=== PATIENT | female | born 1960 | race American Indian/Alaskan Native ===

== ENCOUNTER 2017-08-09 09:01 | Day surgery (SDC) | payer OTHER ==
[2017-05-25 13:34] VITALS: BMI 44.6
[2017-08-09] MEDS ORDERED: Midazolam 2 MG/2 ML VIAL ONE (13:33)
[2017-08-09] MEDS ORDERED: Propofol 10 mg/ml Inj (20 ML) ONE (13:33)
[2017-08-09] MEDS ORDERED: Lidocaine Hydrochloride 5 ML INJ ONE (13:35)
[2017-08-09] MEDS ORDERED: Lactated Ringer's 1,000 ML IV ONE (14:38)
[2017-08-09] MEDS: HYDROmorphone 0.5 mg/0.5 ml ISec IVP PRN ×2 (14:50→15:26)
[2017-08-09 16:40] VITALS: BP 110/55; PULSE 92; RESP 19; TEMP 98; O2SAT 95
--- NOTE | 2017-08-09 17:03 | PCM.SURG1 ---
Surgeon's Initial Post Op Note - Surgeon's Notes Surgeon: Oksana Jaffe MD Environmental Health Safety Manager: none Type of Anesthesia: General LMA Pre-Operative Diagnosis: Abnormal uterine bleeding Operative Findings: enlarged uteurs, cervical stenosis, multpoel polypoid lesiosn within cavity and submucosal myoma 0.5cm, bilateral ostia visulaized Post-Operative Diagnosis: same as above, submucosal myoma, endometiral polyp Operation Performed: Hysteroscopic myomectomy, endometrial polypectomy, Dilation and currettage Specimen/Specimens Removed: endocervical currettings, enodmetrial currettins, submucosal myoma, endometrial polyp Estimated Blood Loss: EBL {In ML}: 25 Blood Products Given: N/A Drains Used: No Drains Post-Op Condition: Good Date of Surgery/Procedure: 08/09/17 Time of Surgery/Procedure: 13:00
--- NOTE | 2017-08-10 02:07 | OP ---
PROCEDURE DATE: 08/09/2017 SURGEON: Oksana Jaffe MD BRIDGE REPAIR CREW PERSON: None. TYPE OF ANESTHESIA: General LMA. PREOPERATIVE DIAGNOSIS: Abnormal uterine bleeding. OPERATIVE FINDINGS: Enlarged uterus, cervical stenosis, multiple polypoid lesions within cavity, submucosal myoma of 0.5 cm, bilateral ostia visualized. POSTOPERATIVE DIAGNOSES: Abnormal uterine bleeding, submucosal myoma and endometrial polyps. OPERATION PERFORMED: Hysteroscopy, myomectomy, endometrial polypectomy, dilation and curettage. SPECIMEN REMOVED: Endocervical curettings, endometrial curettings, submucosal myoma, and endometrial polyp. ESTIMATED BLOOD LOSS: 25 mL. BLOOD PRODUCTS: None. COMPLICATIONS: None. DESCRIPTION OF PROCEDURE: The patient was taken to the operating room where she was given general anesthesia. Once it was found to be adequate, she was positioned on the operating table in a dorsal supine position with the legs supported using stirrups. The patient was then prepped and draped in the usual sterile fashion. A time-out was confirmed correct patient and correct procedure. Bimanual examination was performed with the above-mentioned findings. A red rubber catheter was then inserted into the urethra to drain the bladder. Following this, a Balderas retractor was placed on the anterior and posterior fornix of the vagina. The cervix was adequately visualized and a single-tooth tenaculum was placed in the anterior lip of the cervix. Endocervical curettings were obtained with a Nareshian curette and sent to Pathology on [facility]. Cervical stenosis noted. The uterus was then sounded to 8 cm. Following this, the cervix was sequentially dilated to allow for introduction of a 5 mm hysteroscope under direct visualization using normal saline as the distention media. There were multiple polypoid masses noted within the endometrial cavity and one submucosal lesion noted 0.5 cm in close proximity to the right tubal ostia. Bilateral ostia were visualized. MyoSure device was then inserted under direct visualization and the masses were then carefully resected all of them. Following this, the MyoSure device was removed. A gentle curettage was done 360 degrees until gritty texture was noted. All instruments were removed with good hemostasis noted at the tenaculum puncture site. At the end of the procedure, all needle, sponge and instrument counts were noted and correct x2. The patient tolerated the procedure well and was transferred to the recovery room in stable condition. Oksana Jaffe MD [facility] # [id number]
== END 2017-08-09 16:54 | disposition home or self-care (01) ==
LOC: C.SDS 09:01
PROVIDERS: ATTEND Obstetrics & Gynecology
DX: N84.0 Polyp of corpus uteri (principal); N88.2 Stricture and stenosis of cervix uteri; R10.2 Pelvic and perineal pain; D25.9 Leiomyoma of uterus, unspecified; N87.0 Mild cervical dysplasia; N93.9 Abnormal uterine and vaginal bleeding, unspecified; K21.9 Gastro-esophageal reflux disease without esophagitis; E11.9 Type 2 diabetes mellitus without complications; Z79.84 Long term (current) use of oral hypoglycemic drugs; I10 Essential (primary) hypertension; E78.5 Hyperlipidemia, unspecified
CPT/HCPCS: 58561; 82948; 88305; J1170; J2250; J2704; J3010; J7120

== ENCOUNTER 2017-10-21 11:30 | Inpatient (IN) | payer OTHER ==
[2017-10-18 09:20] VITALS: BMI 44.9
[2017-10-24] MEDS ORDERED: Propofol 10 mg/ml Inj (20 ML) ONE ×2 (10:38→13:19)
[2017-10-24] MEDS ORDERED: ceFAZolin 1 gm in NS 2 GM/200 ML BAG IVPB ONE (10:39)
[2017-10-24] MEDS ORDERED: Midazolam 2 MG/2 ML VIAL ONE (10:42)
[2017-10-24] MEDS ORDERED: ceFAZolin 1 gm in NS 1 GM/100 ML BAG IVPB ONE (10:57)
[2017-10-24] MEDS ORDERED: Rocuronium 10 mg/ml (5 ml) ONE (11:14)
[2017-10-24] MEDS ORDERED: Succinylcholine Chloride 20 mg/ml Syr (5 ml) IV ONE (11:14)
[2017-10-24] MEDS ORDERED: HYDROmorphone 0.5 mg/0.5 ml ISec IVP PRN (12:52)
[2017-10-24] MEDS ORDERED: Morphine Monoject Barrel PCA 1mg/ml IV PRN (12:53)
[2017-10-24] MEDS ORDERED: Morphine 4 MG/ML VIAL ONE (13:35)
[2017-10-24] MEDS ORDERED: Methylene Blue 10 mg/mL(10ml) IV ONE (13:43)
[2017-10-24] MEDS ORDERED: Lactated Ringer's 1,000 ML IV SCH (15:15)
[2017-10-24] MEDS: HYDROmorphone 0.5 mg/0.5 ml ISec IVP PRN ×2 (15:15→17:12)
--- NOTE | 2017-10-24 17:43 | PCM.SURG1 ---
Surgeon's Initial Post Op Note - Surgeon's Notes Surgeon: Oksana Jaffe MD Molding Line Operator: Buster Muir MD Type of Anesthesia: General Endo Pre-Operative Diagnosis: Postmenopausal bleeding, Sympoamtic fibroid uterus, pelvic pain Operative Findings: 12-14 week size heart s haped uteurs with subucosala myoma, no gross fallopian tubes or ovaires identifed, dense adehsiosn to anterior abodmina was 1 hour lysisting omental adhesiosn to gain accesss to periteonal cavity adn bladder adhesios to lower uterine segmetn and other adhesion. Cystoscopy bilateral uretral jets visulzed. Dr Buster Muir was surgcal assisatn and present for etnire case and essential in gaining entry , retraction , lysing adhesions, performing hysterectomy , obtaning hemostasis, and was pressent for entire case Post-Operative Diagnosis: same as above Operation Performed: Exploratory Laparatomy, Total abdominal hysterectomy, Lysis of adhesions, Cystoscopy Specimen/Specimens Removed: Uterus, cervix Estimated Blood Loss: EBL {In ML}: 400 Blood Products Given: N/A Drains Used: No Drains Date of Surgery/Procedure: 10/24/17 Time of Surgery/Procedure: 11:00
[2017-10-24] MEDS ORDERED: Albuterol 0.083% Inhal Sol (2.5 mg/3 mL) UD INH PRN (18:34)
--- NOTE | 2017-10-25 05:29 | OP ---
PROCEDURE DATE: 10/24/2017 SURGEON: Oksana Jaffe MD CAMPUS INTERVIEWS INTERN: Dr. Wilmer Muir. TYPE OF ANESTHESIA: General endotracheal. PREOPERATIVE DIAGNOSES: Postmenopausal bleeding, symptomatic fibroid uterus, pelvic pain. POSTOPERATIVE DIAGNOSES: Postmenopausal bleeding, symptomatic fibroid uterus, pelvic pain. OPERATIVE FINDINGS: A 12-to 14-week size heart shaped uterus, submucosal myoma. No gross fallopian tubes, ovaries identified. Dense adhesions in the anterior abdominal wall of omentum, lysing adhesions 1 hour and also to gain access to the peritoneal cavity. Bladder adhesions noted to the lower uterine segment, and other adhesions, cystoscopy, bilateral ureteral jets. Dr. Wilmer Muir, the surgical services tech was present for the entire case, essential in gaining entry, retraction, exposure, lysing adhesions, performing hysterectomy, attaining hemostasis, present for the entire case. OPERATION PERFORMED: Exploratory laparotomy, total abdominal hysterectomy, lysis of adhesions, cystoscopy. SPECIMENS REMOVED: Uterus and cervix. ESTIMATED BLOOD LOSS: 4 mL. BLOOD PRODUCTS: None. COMPLICATIONS: None. DESCRIPTION OF PROCEDURE: The patient was then transferred to the operating room, where she was prepped and draped in usual sterile fashion. A time-out confirmed correct patient and correct procedure. The patient was given preoperative prophylactic antibiotics. Pfannenstiel skin incision was made into the abdomen down to the subcutaneous tissue, muscular fascia, and peritoneum with careful care. Hemostasis was obtained. Once inside the abdominal cavity, a self-retaining retractor was placed to expose the pelvic cavity with three lap sponges. The uterus was then identified and grasped on the fundus with a cork screw with upward traction, and this was after omental adhesions were carefully dissected from the anterior abdominal wall. Following this, after the uterus was then mobilized on upward traction, the round ligaments on either side were identified, and individually dissected and ligated with 0-Vicryl suture and divided. This allowed us to create a bladder flap by both blunt and sharp dissection after carefully removing bladder adhesions with Metzenbaum scissors in the clear space. The fallopian tube and ovarian ligament were not grossly identified on either side. However, there was a atrophic type right ovary noted, left ovary noted. The utero-ovarian ligament was isolated to the broad ligament from the uterine body and ligated with 0 Vicryl suture and divided as well. The uterine vessel was then skeletonized on either side and carefully dissected the bladder flap anteriorly and posteriorly. The peritoneum was dissected down towards the uterosacral ligament. The Nanci clamps were then placed at the isthmic portion of the cervical body junction where the uterine arteries have drained the uterus. They were clamped, ligated, and divided using 0 Vicryl suture. The remainder of the uterus was then removed by the clamp, cut, ligation technique using the 0 Vicryl on all major pedicles down to the cardinal ligament with removal of uterus and cervix. Vaginal cuff was then closed in the usual manner, 0 Vicryl in interrupted manner. Hemostasis was inspected and secured throughout the entire abdomen. The peritoneum was then closed over the vaginal cuff using a 2-0 Vicryl suture in a running continuous manner. The right ovary was left in situ, suspended to the side wall. The lap, sponge, and instruments were removed. Self-retaining retractor was removed. The patient tolerated the procedure nicely. There were no complications associated with the surgical procedure at this point. The sponge count was correct x2. The Jameson catheter was inspected and clear urine was noted. Having removed all instruments and packs, then began closure of abdomen. Peritoneum was reapproximated with 2-0 Vicryl in a running continuous fashion. The rectus was reapproximated and closed with 2-0 chromic in an interrupted manner. The fascia was closed with 0 Vicryl in running continuous fashion, subcutaneous closed with 2-0 Vicryl in a running continuous manner. The skin was closed with sophia. Hemostasis was secured throughout the entire procedure. The incision was then closed and noted in the above operative findings. The patient had tolerated the procedure well. Then the abdomen was cleaned and irrigated. Attention was then turned to the peritoneum. The Jameson catheter was removed. Following this, a Sinhala ____ cystoscope was then inserted. The urethra appeared normal. The bladder was distended with normal saline. There were no sutures on gross evaluation. There were bilateral ureteral jets with patency noted on either side. The cystoscope was then removed and a new Jameson catheter was inserted. At the end of procedure, all needle, sponge, and instrument counts were correct x2. The patient tolerated the procedure well and transferred to recovery room in stable condition. Oksana Jaffe MD
[2017-10-25] MEDS ORDERED: Oxycodone/Acetaminophen 5/325 mg Tab PO PRN (07:59)
--- NOTE | 2017-10-25 07:59 | CP.PCM.PN ---
<Yamel Oneal - Last Filed: 10/25/17 08:53> Subjective - Date & Time of Evaluation Date of Evaluation: 10/25/17 Time of Evaluation: 07:59 - Subjective Subjective: Patient was seen and examined at bedside in no acute distress. Patient reports that she currently has pain 10/10 at incision site. States that she was given Morphine with no relief in symptoms. States that she only tolerated tea, not willing to tolerate other liquids at this time. Patient also reports vomiting x 2 - yellow in color, s/p hysterectomy; however, currently denies nausea and vomiting. Patient denies flatus and bowel movents. Otherwise, denies fevers, chills, chest pain, SOB, palpitations, leg swelling/pain. Objective - Vital Signs/Intake and Output Vital Signs (last 24 hours): Temp Pulse Resp BP Pulse Ox 98.6 F 95 H 20 141/80 100 10/25/17 00:00 10/25/17 00:00 10/25/17 00:00 10/25/17 00:00 10/25/17 00:00 Intake and Output: 10/25/17 10/25/17 06:59 18:59 Intake Total 125 Balance 125 - Medications Medications: Current Medications Lactated Ringer's (Lactated Ringer's) 1,000 mls @ 125 mls/hr IV .Q8H CATALINA Cefazolin Sodium 3,000 mg/ (Sodium Chloride) 100 mls @ 100 mls/hr IVPB Q8H [place]INA PRN Reason: Protocol Last Admin: 10/25/17 03:29 Dose: 100 mls/hr Ibuprofen (Motrin Tab) 600 mg PO Q6H PRN PRN Reason: Pain, Mild (1-3) Insulin Human Regular (Novolin R) 0 unit SC ACHS CATALINA PRN Reason: Protocol Morphine Sulfate/Sodium Chloride (Morphine Director Of Philanthropy Monoject Barrel) 30 mg IV Q4H PRN; Protocol PRN Reason: Pain, moderate (4-7) Stop: 10/25/17 12:53 Ondansetron HCl (Zofran Inj) 4 mg IVP Q8H PRN PRN Reason: Nausea/Vomiting Last Admin: 10/24/17 21:22 Dose: 4 mg - Constitutional Appears: No Acute Distress - Head Exam Head Exam: ATRAUMATIC, NORMAL INSPECTION - Eye Exam Eye Exam: EOMI, Normal appearance - ENT Exam ENT Exam: Mucous Membranes Moist - Respiratory Exam Respiratory Exam: Clear to Ausculation Bilateral. absent: Rales, Rhonchi, Wheezes - Cardiovascular Exam Cardiovascular Exam: REGULAR RHYTHM, +S1, +S2 - GI/Abdominal Exam GI & Abdominal Exam: Distended (mild), Soft, Tenderness (surgical incision, diffuse mild tenderness LLQ with palpation), Normal Bowel Sounds Additional comments: dressing clean, dry intact; obese abdomen - Extremities Exam Extremities Exam: Normal Inspection - Neurological Exam Neurological Exam: Alert, Awake, Oriented x3 - Psychiatric Exam Psychiatric exam: Normal Affect, Normal Mood - Skin Skin Exam: Dry, Intact, Normal Color, Warm Assessment and Plan - Assessment and Plan (Free Text) Plan: Patient is a 57 year old female s/p total abdominal hysterectomy; POD#1. Plan/Assessment: - Pain management: Discontinued morphine HORSES OR MULES TEAMSTER Ibuprofen 600mg PO Q6h prn for mild pain Percocet 1 tab Q4 prn for moderate pain Percocet 2 tabs Q4 prn for severe pain - Continue IV Antibiotic: Cefazolin 3g IV Q8h - Continue LRs - Continue Zofran 4mg IV Q8 prn for nausea - Encourage ambulation. - Liquid diet, advance as tolerated. <Oksana Jaffe - Last Filed: 10/26/17 07:53> Objective - Vital Signs/Intake and Output Vital Signs (last 24 hours): Temp Pulse Resp BP Pulse Ox 99.0 F 98 H 20 127/78 100 10/26/17 04:00 10/26/17 04:00 10/26/17 04:00 10/26/17 04:00 10/26/17 04:00 - Medications Medications: Current Medications Lactated Ringer's (Lactated Ringer's) 1,000 mls @ 125 mls/hr IV .Q8H [place]INA Ibuprofen (Motrin Tab) 600 mg PO Q6H PRN PRN Reason: Pain, Mild (1-3) Insulin Human Regular (Novolin R) 0 unit SC ACHS [place]INA PRN Reason: Protocol Last Admin: 10/26/17 03:53 Dose: Not Given Ondansetron HCl (Zofran Inj) 4 mg IVP Q8H PRN PRN Reason: Nausea/Vomiting Last Admin: 10/24/17 21:22 Dose: 4 mg Oxycodone/Acetaminophen (Percocet 5/325 Mg Tab) 1 tab PO Q4H PRN PRN Reason: Pain, moderate (4-7) Stop: 10/28/17 08:00 Oxycodone/Acetaminophen (Percocet 5/325 Mg Tab) 2 tab PO Q4H PRN PRN Reason: Pain, severe (8-10) Stop: 10/28/17 08:01 Last Admin: 10/26/17 03:45 Dose: 2 tab Simethicone (Mylicon Chew Tab) 80 mg PO QID CATALINA Last Admin: 10/25/17 21:38 Dose: 80 mg - Labs Labs: 10/25/17 20:06 10/25/17 08:25 Assessment and Plan - Assessment and Plan (Free Text) Plan: agree with above pt camron and emaxiend encourage mabaiton out of bed, avance diet bowel regimen maryjo lightheand, dizzyness, cp, sob plna iron advance diet pain amgnetn encouarhe ambaiotn incentive spirometner
[2017-10-25 08:36] LABS: HEMOGLOBIN 7.9 g/dL (11.0-16.0); MEAN CELL VOLUME 92.2 fL (81.0-99.0); MEAN CORPUSCULAR HEMOGLOBIN 31.5 pg (27.0-31.0); MEAN CORPUSCULAR HGB CONC 34.1 g/dL (33.0-37.0); MEAN PLATELET VOLUME 9.9 fL (7.2-11.7); RBC 2.51 Mil/uL (3.80-5.20); RED CELL DISTRIBUTION WIDTH 15.6 % (11.5-14.5); WHITE BLOOD COUNT 8.1 K/uL (4.8-10.8)
[2017-10-25 08:54] LABS: ALBUMIN 3.4 g/dL (3.5-5.0); ALT/SGPT 55 U/L (9-52); AST/SGOT 53 U/L (14-36); BLOOD UREA NITROGEN 9 mg/dL (7-17); CALCIUM 8.1 mg/dl (8.6-10.4); GFR AFRICAN-AMERICAN > 60; GFR NON-AFRICAN AMERICAN > 60
[2017-10-25] MEDS: Oxycodone/Acetaminophen 5/325 mg Tab PO PRN ×3 (09:00→21:37)
[2017-10-25] MEDS: Simethicone 80 mg Chewtab PO SCH ×3 (14:39→21:38)
[2017-10-25 20:10] LABS: BASO % 0.5 % (0.0-2.0); EOS # 0.1 K/uL (0.0-0.7); EOS % 1.1 % (0.0-4.0); HEMOGLOBIN 7.6 g/dL (11.0-16.0); LYMPH # 1.9 K/uL (1.0-4.3); LYMPH % 25.8 % (20.0-40.0); MEAN CELL VOLUME 91.4 fL (81.0-99.0); MEAN CORPUSCULAR HEMOGLOBIN 30.9 pg (27.0-31.0); MEAN CORPUSCULAR HGB CONC 33.8 g/dL (33.0-37.0); MEAN PLATELET VOLUME 9.4 fL (7.2-11.7); MONO # 0.4 K/uL (0.0-0.8); MONO % 5.9 % (0.0-10.0); NEUT % 66.7 % (50.0-75.0); NRBC % 0.1 % (0.0-2.0); RBC 2.45 Mil/uL (3.80-5.20); RED CELL DISTRIBUTION WIDTH 15.4 % (11.5-14.5); WHITE BLOOD COUNT 7.5 K/uL (4.8-10.8)
[2017-10-26] MEDS: Oxycodone/Acetaminophen 5/325 mg Tab PO PRN ×3 (03:45→17:31)
[2017-10-26] MEDS: (Novolin R) Insulin Human Regular 100 units/ml vial SC SCH ×5 (03:53→22:07)
--- NOTE | 2017-10-26 07:57 | CP.PCM.PN ---
Subjective - Date & Time of Evaluation Date of Evaluation: 10/26/17 Time of Evaluation: 07:15 - Subjective Subjective: pt seen and examined and reprots pain comes adn goes. pt ambuaitng, voidign, not passing flatus, tolerateign diet, dneis any cp, sob, dizzynes, lightheand,d . Objective - Vital Signs/Intake and Output Vital Signs (last 24 hours): Temp Pulse Resp BP Pulse Ox 99.0 F 98 H 20 127/78 100 10/26/17 04:00 10/26/17 04:00 10/26/17 04:00 10/26/17 04:00 10/26/17 04:00 - Medications Medications: Current Medications Lactated Ringer's (Lactated Ringer's) 1,000 mls @ 125 mls/hr IV .Q8H [place] Ibuprofen (Motrin Tab) 600 mg PO Q6H PRN PRN Reason: Pain, Mild (1-3) Insulin Human Regular (Novolin R) 0 unit SC ACHS [place] PRN Reason: Protocol Last Admin: 10/26/17 03:53 Dose: Not Given Ondansetron HCl (Zofran Inj) 4 mg IVP Q8H PRN PRN Reason: Nausea/Vomiting Last Admin: 10/24/17 21:22 Dose: 4 mg Oxycodone/Acetaminophen (Percocet 5/325 Mg Tab) 1 tab PO Q4H PRN PRN Reason: Pain, moderate (4-7) Stop: 10/28/17 08:00 Oxycodone/Acetaminophen (Percocet 5/325 Mg Tab) 2 tab PO Q4H PRN PRN Reason: Pain, severe (8-10) Stop: 10/28/17 08:01 Last Admin: 10/26/17 03:45 Dose: 2 tab Simethicone (Mylicon Chew Tab) 80 mg PO QID [facility] Last Admin: 10/25/17 21:38 Dose: 80 mg - Labs Labs: 10/25/17 20:06 10/25/17 08:25 - Constitutional Appears: Well, Non-toxic - Head Exam Head Exam: ATRAUMATIC, NORMAL INSPECTION - ENT Exam ENT Exam: Mucous Membranes Moist - Neck Exam Neck Exam: Full ROM - Respiratory Exam Respiratory Exam: Clear to Ausculation Bilateral, NORMAL BREATHING PATTERN - Cardiovascular Exam Cardiovascular Exam: REGULAR RHYTHM, +S1, +S2 - GI/Abdominal Exam GI & Abdominal Exam: Soft, Tenderness, Normal Bowel Sounds Additional comments: TTP near incison, no guraidn, no reobudn tendnere, no irigity incison c/d/di - Extremities Exam Extremities Exam: Full ROM, Normal Inspection - Back Exam Back Exam: NORMAL INSPECTION - Neurological Exam Neurological Exam: CN II-XII Intact, Oriented x3 - Skin Skin Exam: Normal Color Assessment and Plan (1) S/P hysterectomy Assessment & Plan: 1. Pain mamangent: percocet/motirn 2. Advan e diet 3. Encouraghe ambatin 4. Incentive spironter 5. Astham: albuterol bprn 6. HTN: Meds, VS per rptocoe 7. DM: Insulin with blood gluow moing 8. Iron /colace with acute on chronic bloodloss anemia, curent stable Status: Acute
[2017-10-26] MEDS: Simethicone 80 mg Chewtab PO SCH ×4 (09:09→22:13)
[2017-10-26] MEDS ORDERED: Magnesium Hydroxide Susp 30 ml UD PO ONE (17:33)
[2017-10-26] MEDS: Pantoprazole 20 mg EC Tab PO SCH (22:46)
[2017-10-27 00:37] VITALS: PULSE 95
[2017-10-27] MEDS: Oxycodone/Acetaminophen 5/325 mg Tab PO PRN (02:20)
[2017-10-27 07:48] LABS: BASO % 0.5 % (0.0-2.0); EOS # 0.1 K/uL (0.0-0.7); EOS % 2.7 % (0.0-4.0); HEMOGLOBIN 7.6 g/dL (11.0-16.0); LYMPH # 1.5 K/uL (1.0-4.3); LYMPH % 26.8 % (20.0-40.0); MEAN CELL VOLUME 92.1 fL (81.0-99.0); MEAN CORPUSCULAR HEMOGLOBIN 31.4 pg (27.0-31.0); MEAN CORPUSCULAR HGB CONC 34.1 g/dL (33.0-37.0); MEAN PLATELET VOLUME 9.8 fL (7.2-11.7); MONO # 0.3 K/uL (0.0-0.8); MONO % 5.7 % (0.0-10.0); NEUT # 3.6 K/uL (1.8-7.0); NEUT % 64.3 % (50.0-75.0); NRBC % 0.1 % (0.0-2.0); RBC 2.41 Mil/uL (3.80-5.20); WHITE BLOOD COUNT 5.6 K/uL (4.8-10.8)
[2017-10-27 08:11] LABS: ALB/GLOB RATIO 1.1 (1.0-2.1); ALBUMIN 3.4 g/dL (3.5-5.0); ALT/SGPT 45 U/L (9-52); AST/SGOT 59 U/L (14-36); BLOOD UREA NITROGEN 6 mg/dL (7-17); CALCIUM 8.2 mg/dl (8.6-10.4); GFR AFRICAN-AMERICAN > 60; GFR NON-AFRICAN AMERICAN > 60
[2017-10-27] MEDS: (Novolin R) Insulin Human Regular 100 units/ml vial SC SCH ×2 (08:17→11:27)
[2017-10-27] MEDS: Simethicone 80 mg Chewtab PO SCH (09:11)
[2017-10-27] MEDS: Pantoprazole 20 mg EC Tab PO SCH (09:12)
[2017-10-27 09:47] VITALS: BP 107/71; RESP 98; TEMP 97.8; O2SAT 99
== END 2017-10-27 12:55 | disposition home or self-care (01) | DRG 742 ==
LOC: C.9S 10-24 08:57 → EDSTATUS 10-24 11:00 → C.4M 10-24 16:51
PROVIDERS: ADMIT Obstetrics & Gynecology; ATTEND Obstetrics & Gynecology
PROC: 0TJB8ZZ Inspection of Bladder, Via Natural or Artificial Opening Endoscopic (ICD-10-PCS; 2017-10-24)
PROC: 0UT90ZZ Resection of Uterus, Open Approach (ICD-10-PCS; principal; 2017-10-24 11:00)
PROC: 0DNU0ZZ Release Omentum, Open Approach (ICD-10-PCS; 2017-10-24 11:00)
DX: D25.0 Submucous leiomyoma of uterus (principal); D62 Acute posthemorrhagic anemia; N95.0 Postmenopausal bleeding; K66.0 Peritoneal adhesions (postprocedural) (postinfection); N32.89 Other specified disorders of bladder; I10 Essential (primary) hypertension; E11.9 Type 2 diabetes mellitus without complications; Z79.4 Long term (current) use of insulin